=== PATIENT | male | born 1960 | race Caucasian/White ===

== ENCOUNTER 2018-11-12 04:32 | Emergency (ER) | payer MEDICARE ==
[~2018-11-12] VITALS: Ht 167.6 cm; Wt 78.1 kg
[2018-11-12] MEDS ORDERED: FAMOTIDINE 20 MG/2 ML ONE (04:50)
[2018-11-12] MEDS ORDERED: DIPHENHYDRAMINE 50 MG/ML, 1ML ONE (04:50)
[2018-11-12] MEDS ORDERED: methylPREDNISolone SOD SUCC 125 MG/2 ML ONE (04:50)
[2018-11-12] MEDS ORDERED: methylPREDNISolone SOD SUCC 125 MG/2 ML IVPush ONE (05:00)
[2018-11-12] MEDS ORDERED: FAMOTIDINE 20 MG/2 ML IVPush ONE (05:00)
[2018-11-12] MEDS ORDERED: DIPHENHYDRAMINE 50 MG/ML, 1ML IVPush ONE (05:00)
[2018-11-12] MEDS ORDERED: SODIUM CHLORIDE FLUSH 10ML SYR IVF ONE (05:00)
[2018-11-12] MEDS ORDERED: EPINEPHRINE 1 MG/ML, 1ML ONE (05:42)
[2018-11-12] MEDS ORDERED: EPINEPHRINE 1 MG/ML, 1ML SQ ONE (06:00)
[2018-11-12 06:12] VITALS: BP 130/84
--- NOTE | 2018-11-12 06:59 | NUR ---
Report from RAMON Doherty.
== END 2018-11-12 07:17 | disposition home or self-care (01) ==
LOC: ED 05:17
DX: R21 Rash and other nonspecific skin eruption (principal); T78.49XA Other allergy, initial encounter; L01.01 Non-bullous impetigo; I25.10 Atherosclerotic heart disease of native coronary artery without angina pectoris; F17.210 Nicotine dependence, cigarettes, uncomplicated
CPT/HCPCS: 96372; 96374; 96375; 99283; J0171; J1200; J2930; J3490